=== PATIENT | male | born 1945 | race Caucasian/White ===

== ENCOUNTER 2016-12-24 15:38 | Inpatient (IN) | payer MEDICARE ==
[2016-12-24 16:29] LABS: Bilirubin Small (Negative); Blood, Urine Large (Negative); Glucose, Urine (Dipstick) Negative (Negative); Protein, Urine (Dipstick) 100 mg/dL (Neg-Trace)
[2016-12-24 16:30] LABS: Squamous Epithelial 0-3 HPF (0-3)
--- NOTE | 2016-12-24 16:31 | RAD ---
CHEST ONE VIEW: History: Fever. Comparison: 03-15-16 FINDINGS: Lungs are clear. No pneumothorax or effusion. Cardiac silhouette and mediastinal contours within nor mal limits. IMPRESSION: No acute intrathoracic abnormality. No significant change. POS: [facility]
[2016-12-24 16:35] LABS: Ketone, Urine Unable to Interpret mg/dL (Negative); Nitrite Unable to Interpret (Negative)
[2016-12-24 16:36] LABS: Hyaline Casts/LPF 0-3 HYALINE CAST LPF (0-3 Hyaline); RBC/HPF GREATER THAN 50-TNTC HPF (0-3)
[2016-12-24 16:38] LABS: Bacteria/HPF 2+ HPF (None Seen); Yeast-All Forms Rare HPF (None Seen)
[2016-12-24 17:12] LABS: #Eosinphils 0.1 thou/uL (0.0-0.7); #Lymphocytes 0.9 thou/uL (1.20-3.40); #Neutrophils 13.2 thou/uL (1.40-6.50); %Eosinophils 0.7 % (0.0-10.0); %Lymphocytes 5.6 % (21.0-51.0); %Monocytes 12.5 % (0.0-10.0); Hematocrit 49.5 % (42.0-52.0); Mean Platelet Volume 7.4 fL (7.4-10.4); Red Blood Cell (RBC) Count 5.45 mill/uL (4.70-6.10); White Blood Cell (WBC) Count 16.3 thou/uL (4.8-10.8)
[2016-12-24] MEDS ORDERED: Vancomycin HCl 1 GM in Premix Bag 1 BAG IVPB SCH (17:15)
[2016-12-24] MEDS ORDERED: Piperacillin/Tazobactam 4.5 GM in Sodium Chloride 0.9% 100 ML IVPB SCH (17:15)
[2016-12-24 17:21] LABS: ALT (SGPT) 12 U/L (8-55); AST (SGOT) 13 U/L (5-34); Alkaline Phosphatase 73 U/L (40-150); Anion Gap 16 mmol/L (10-20); BUN (Urea Nitrogen) 35 mg/dL (8.4-25.7); CK (CPK) 14 U/L (30-200); Calc. Creatinine Clearance 0 mL/min (70-130); Calcium 8.8 mg/dL (7.8-10.44); Carbon Dioxide 18 mmol/L (23-31); Chloride 112 mmol/L (98-107); Estimated GFR-MDRD 53; Globulin 3.3 g/dL (2.4-3.5)
[2016-12-24 17:25] LABS: Troponin I Less than 0.010 ng/mL (< 0.028)
[2016-12-24] MEDS ORDERED: Acetaminophen 650 MG Suppository PR PRN (17:46)
[2016-12-24] MEDS ORDERED: Bisacodyl 5 MG TAB PO PRN (17:46)
[2016-12-24] MEDS ORDERED: cefTRIAXone\\ROCEPHIN 1 GM in Sodium Chloride 0.9% 100 ML IVPB SCH (18:00)
[2016-12-24] MEDS ORDERED: cefTRIAXone\\ROCEPHIN 1 GM, Syringe 0.4 ML in Sterile Water 9.6 ML SLOW IVP SCH (18:00)
[2016-12-24 18:01] LABS: Lactic Acid - Sepsis 1.4 mmol/L (0.5-2.2)
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
[2016-12-24 22:15] VITALS: BMI 32.6
[2016-12-24] MEDS: Heparin 5,000 UNITS/ML VIAL SC SCH (23:11)
[2016-12-25] MEDS: cefTRIAXone\\ROCEPHIN 1 GM, Syringe 0.4 ML in Sterile Water 9.6 ML SLOW IVP SCH ×2 (01:25→23:20)
[2016-12-25] MEDS: Sodium Chloride 0.9% 1,000 ML IV SCH ×2 (01:25→07:00)
[2016-12-25 05:06] LABS: #Eosinphils 0.3 thou/uL (0.0-0.7); #Lymphocytes 1.4 thou/uL (1.20-3.40); #Monocytes 1.5 thou/uL (0.11-0.59); #Neutrophils 8.3 thou/uL (1.40-6.50); %Basophils 0.2 % (0.0-1.0); %Eosinophils 2.4 % (0.0-10.0); %Lymphocytes 12.1 % (21.0-51.0); %Monocytes 13.1 % (0.0-10.0); Hematocrit 44.8 % (42.0-52.0); Mean Platelet Volume 7.9 fL (7.4-10.4); Red Blood Cell (RBC) Count 4.91 mill/uL (4.70-6.10); White Blood Cell (WBC) Count 11.4 thou/uL (4.8-10.8)
[2016-12-25 05:22] LABS: ALT (SGPT) 12 U/L (8-55); AST (SGOT) 13 U/L (5-34); Alkaline Phosphatase 68 U/L (40-150); Bilirubin, Direct 0.4 mg/dL (0.1-0.3); Bilirubin, Total 0.9 mg/dL (0.2-1.2); Protein, Total 6.4 g/dL (5.8-8.1)
[2016-12-25 05:23] LABS: Anion Gap 13 mmol/L (10-20); BUN (Urea Nitrogen) 27 mg/dL (8.4-25.7); Calc. Creatinine Clearance 87 mL/min (70-130); Calcium 8.2 mg/dL (7.8-10.44); Carbon Dioxide 21 mmol/L (23-31); Chloride 110 mmol/L (98-107); Estimated GFR-MDRD 70
[2016-12-25] MEDS ORDERED: Sodium Chloride 0.9% 1,000 ML IV SCH (08:32)
[2016-12-25] MEDS: Heparin 5,000 UNITS/ML VIAL SC SCH ×3 (08:51→20:42)
[2016-12-25] MEDS ORDERED: FLU VACC TS2017-18 (>65YR) 0.5 ML SYRINGE IM ONE (09:00)
[2016-12-25 09:33] LABS: Anion Gap 14 mmol/L (10-20); BUN (Urea Nitrogen) 24 mg/dL (8.4-25.7); Calc. Creatinine Clearance 85 mL/min (70-130); Calcium 8.4 mg/dL (7.8-10.44); Carbon Dioxide 19 mmol/L (23-31); Chloride 113 mmol/L (98-107); Estimated GFR-MDRD 69; Magnesium 2.4 mg/dL (1.6-2.6); Phosphorus 2.6 mg/dL (2.3-4.7)
[2016-12-25] MEDS ORDERED: hydrALAZINE 20 MG/ML VIAL SLOW IVP PRN (10:22)
--- NOTE | 2016-12-25 10:28 | PDOC.PN ---
- Subjective Encounter Start Date: 12/25/16 Encounter Start Time: 10:27 more alert no n/v no f/c - Objective Resuscitation Status: Resuscitation Status FULL:Full Resuscitation MAR Reviewed: Yes Vital Signs & Weight: Vital Signs (12 hours) Temp Pulse Resp BP Pulse Ox 12/25/16 08:00 98.0 F 78 20 123/73 97 12/25/16 04:00 98.9 F 78 18 138/67 96 12/25/16 00:00 98.0 F 89 18 146/60 H 95 Weight Weight 208 lb 7 oz I&O: 12/24/16 12/25/16 12/26/16 06:59 06:59 06:59 Intake Total 1760 Output Total 160 Balance 1600 Result Diagrams: 12/25/16 04:51 12/25/16 09:05 Phys Exam - Physical Examination Constitutional: NAD HEENT: PERRLA Neck: no JVD Respiratory: no wheezing Cardiovascular: no significant murmur Gastrointestinal: non-tender Musculoskeletal: pulses present Neurological: normal sensation Psychiatric: A&O x 3 -: has will cath Dx/Plan (1) UTI (urinary tract infection) due to urinary indwelling Will catheter Code(s): T83.511A - I/I REACT D/T INDWELLING URETHRAL CATHETER, INIT; N39.0 - URINARY TRACT INFECTION, SITE NOT SPECIFIED Status: Acute (2) Dyslipidemia Code(s): E78.5 - HYPERLIPIDEMIA, UNSPECIFIED Status: Chronic (3) HTN (hypertension) Code(s): I10 - ESSENTIAL (PRIMARY) HYPERTENSION Status: Chronic Qualifiers: Comment: Stable (4) Sepsis Code(s): A41.9 - SEPSIS, UNSPECIFIED ORGANISM Status: Resolved - Plan * f/u culture, cont rocephin * f/u us renal * monitor lytes
[2016-12-25] MEDS: Sodium Chloride 0.45% 1,000 ML IV SCH ×2 (17:15→23:29)
--- NOTE | 2016-12-25 19:06 | ULT ---
BILATERAL RENAL ULTRASOUND: Date: 12/25/16 HISTORY: UTI. FINDINGS: The right kidney measures 10.8 cm in length and the left kidney measures 11.2 cm in length. No focal mass or hydronephrosis seen on either side. Cortical echogenicity and thickness normal. Urinary bladd er is empty. IMPRESSION: Unremarkable exam. POS: [facility]
[2016-12-25] MEDS: Acetaminophen 325 MG TAB PO PRN (20:41)
[2016-12-26 04:42] LABS: #Eosinphils 0.7 thou/uL (0.0-0.7); #Lymphocytes 1.9 thou/uL (1.20-3.40); #Monocytes 1.9 thou/uL (0.11-0.59); #Neutrophils 9.6 thou/uL (1.40-6.50); %Eosinophils 4.7 % (0.0-10.0); %Lymphocytes 13.2 % (21.0-51.0); %Monocytes 13.8 % (0.0-10.0); Hematocrit 42.3 % (42.0-52.0); Mean Platelet Volume 10.1 fL (7.4-10.4); Red Blood Cell (RBC) Count 4.59 mill/uL (4.70-6.10); White Blood Cell (WBC) Count 14.1 thou/uL (4.8-10.8)
[2016-12-26] MEDS: Sodium Chloride 0.45% 1,000 ML IV SCH (05:49)
[2016-12-26 06:10] LABS: Anion Gap 15 mmol/L (10-20); BUN (Urea Nitrogen) 16 mg/dL (8.4-25.7); BUN/Creatinine Ratio 17.98; Calc. Creatinine Clearance 102 mL/min (70-130); Calcium 8.2 mg/dL (7.8-10.44); Carbon Dioxide 20 mmol/L (23-31); Chloride 105 mmol/L (98-107); Estimated GFR-MDRD 84; Phosphorus 2.8 mg/dL (2.3-4.7)
[2016-12-26] MEDS: Acetaminophen 325 MG TAB PO PRN (06:43)
[2016-12-26] MEDS: Heparin 5,000 UNITS/ML VIAL SC SCH (08:57)
--- NOTE | 2016-12-26 12:53 | PDOC.PN ---
- Subjective Encounter Start Date: 12/26/16 Encounter Start Time: 08:00 Subjective: awake, no sob - Objective Resuscitation Status: Resuscitation Status FULL:Full Resuscitation MAR Reviewed: Yes Vital Signs & Weight: Vital Signs (12 hours) Temp Pulse Resp BP Pulse Ox 12/26/16 08:00 98.6 F 77 16 96 12/26/16 07:21 98.6 F 77 16 128/76 96 12/26/16 04:00 98.8 F 72 18 119/70 97 Weight Weight 208 lb 7 oz I&O: 12/25/16 12/26/16 12/27/16 06:59 06:59 06:59 Intake Total 1760 2742 Output Total 160 875 Balance 1600 1867 Result Diagrams: 12/26/16 04:03 12/26/16 05:25 Phys Exam - Physical Examination HEENT: PERRLA, moist MMs Neck: no JVD, supple Respiratory: no wheezing, no rales Cardiovascular: RRR, no significant murmur Gastrointestinal: soft, non-tender, positive bowel sounds Musculoskeletal: pulses present, edema present Neurological: non-focal, moves all 4 limbs Psychiatric: A&O x 3 Dx/Plan (1) Sepsis Code(s): A41.9 - SEPSIS, UNSPECIFIED ORGANISM Status: Acute Comment: due to klebsiella (2) UTI (urinary tract infection) Status: Acute Qualifiers: Encounter type: subsequent encounter (3) Dyslipidemia Code(s): E78.5 - HYPERLIPIDEMIA, UNSPECIFIED Status: Chronic (4) HTN (hypertension) Code(s): I10 - ESSENTIAL (PRIMARY) HYPERTENSION Status: Chronic Qualifiers: Hypertension type: essential hypertension Comment: Stable - Plan is on ceftriaxone -: eleni kowalski for LE edema -: may dc iv fluids -: will add home dose of flomax -: is on ?eliquis for prior PE, accurate home med list/from his pharmacy * . Review of Systems - Medications/Allergies Allergies/Adverse Reactions: Allergies Allergy/AdvReac Type Severity Reaction Status Date / Time No Known Allergies Allergy Verified 02/15/16 23:10 Medications: Current Medications Acetaminophen (Tylenol) 650 mg PO Q4H PRN PRN Reason: Headache/Fever or Pain Last Admin: 12/26/16 06:43 Dose: 650 mg Acetaminophen (Tylenol) 650 mg MA Q4H PRN PRN Reason: Headache/Fever or Pain Bisacodyl (Dulcolax) 10 mg PO DAILYPRN PRN PRN Reason: Constipation Heparin Sodium (Porcine) (Heparin) 5,000 units SC TID [facility] Last Admin: 12/26/16 08:57 Dose: 5,000 units Hydralazine HCl (Apresoline) 10 mg SLOW IVP Q4H PRN PRN Reason: SBP Greater Than 180 Ceftriaxone Sodium 1 gm/ (Syringe 0.4 ml/ Sterile Water) 10 mls @ 120 mls/hr SLOW IVP 2359 [facility] Last Admin: 12/25/16 23:20 Dose: 10 mls Sodium Chloride (1/2 Normal Saline) 1,000 mls @ 75 mls/hr IV .[id number] [facility] Last Admin: 12/26/16 05:49 Dose: 1,000 mls Sodium Chloride (Flush - Normal Saline) 10 ml IVF PRN PRN PRN Reason: Saline Flush
--- NOTE | 2016-12-26 16:14 | ULT ---
BILATERAL LOWER EXTREMITY VENOUS DUPLEX ULTRASOUND INCLUDING COLOR AND SPECTRAL DOPPLER IMAGIN12/26/16 HISTORY: 71-year-old male with history of bilateral leg edema. The exam performed from groin to ankle including visualized greater saphenous, common femoral, superf icial femoral, profunda femoral, popliteal, trifurcation, and posterior tibial vein regions. There is very extensive obstructing deep venous thrombosis involving almost the entire deep venous sy stems bilaterally including common femoral, entire superficial femoral, popliteal, and posterior tibi al veins bilaterally. IMPRESSION: Very extensive bilateral deep venous thrombosis involving both right and left lower extremity deep ve nous system. This report was called to the patient's nurse, Josefina, at 2:15 p.m. Code CR POS: [facility]
[2016-12-26] MEDS: Tamsulosin HCl 0.4 MG CAP PO SCH (19:59)
[2016-12-26] MEDS: Atorvastatin Calcium 10 MG TAB PO SCH (19:59)
[2016-12-26] MEDS: Apixaban 5 MG TAB PO SCH (19:59)
[2016-12-27] MEDS: cefTRIAXone\\ROCEPHIN 1 GM, Syringe 0.4 ML in Sterile Water 9.6 ML SLOW IVP SCH (00:04)
[2016-12-27] MEDS: Acetaminophen 325 MG TAB PO PRN (00:40)
[2016-12-27 05:34] LABS: #Eosinphils 0.4 thou/uL (0.0-0.7); #Lymphocytes 1.3 thou/uL (1.20-3.40); #Monocytes 1.4 thou/uL (0.11-0.59); #Neutrophils 11.9 thou/uL (1.40-6.50); %Basophils 0.1 % (0.0-1.0); %Eosinophils 2.4 % (0.0-10.0); %Lymphocytes 8.9 % (21.0-51.0); %Monocytes 9.1 % (0.0-10.0); Hematocrit 43.6 % (42.0-52.0); Mean Platelet Volume 7.7 fL (7.4-10.4); Red Blood Cell (RBC) Count 4.78 mill/uL (4.70-6.10)
[2016-12-27 05:37] LABS: Anion Gap 14 mmol/L (10-20); BUN (Urea Nitrogen) 11 mg/dL (8.4-25.7); BUN/Creatinine Ratio 12.79; Calc. Creatinine Clearance 105 mL/min (70-130); Calcium 8.3 mg/dL (7.8-10.44); Carbon Dioxide 20 mmol/L (23-31); Chloride 105 mmol/L (98-107); Estimated GFR-MDRD 88; Phosphorus 2.7 mg/dL (2.3-4.7)
[2016-12-27] MEDS: Apixaban 5 MG TAB PO SCH ×2 (08:44→20:55)
--- NOTE | 2016-12-27 13:28 | PDOC.PN ---
- Subjective Encounter Start Date: 12/27/16 Encounter Start Time: 08:00 Subjective: awake, no sob - Objective Resuscitation Status: Resuscitation Status FULL:Full Resuscitation MAR Reviewed: Yes Vital Signs & Weight: Vital Signs (12 hours) Temp Pulse Resp BP Pulse Ox 12/27/16 08:00 98.8 F 73 16 147/94 H 98 12/27/16 05:38 98.1 F 70 18 178/82 H 96 12/27/16 01:40 98.5 F 89 18 112/73 95 Weight Weight 208 lb 7 oz I&O: 12/26/16 12/27/16 12/28/16 06:59 06:59 06:59 Intake Total 2742 Output Total 875 1025 Balance 1867 -1025 Result Diagrams: 12/27/16 04:00 12/27/16 04:00 Phys Exam - Physical Examination HEENT: PERRLA, moist MMs Neck: no JVD, supple Respiratory: no wheezing, no rales Cardiovascular: RRR, no significant murmur Gastrointestinal: soft, non-tender, positive bowel sounds Musculoskeletal: no edema, pulses present Neurological: non-focal, moves all 4 limbs Psychiatric: A&O x 3 Dx/Plan (1) Sepsis Code(s): A41.9 - SEPSIS, UNSPECIFIED ORGANISM Status: Acute Comment: due to klebsiella (2) UTI (urinary tract infection) Status: Acute Qualifiers: Encounter type: subsequent encounter (3) Dyslipidemia Code(s): E78.5 - HYPERLIPIDEMIA, UNSPECIFIED Status: Chronic (4) HTN (hypertension) Code(s): I10 - ESSENTIAL (PRIMARY) HYPERTENSION Status: Chronic Qualifiers: Hypertension type: essential hypertension Comment: Stable - Plan wbc is 15k, persistent leucocytosis likely due to dvt? -: cultures are growing klebsiella sensitive to all antibiotics in urine -: has extensive dvt, is on eliquis -: eleni hose -: to ambulate as tolerated with PT * . Review of Systems - Medications/Allergies Allergies/Adverse Reactions: Allergies Allergy/AdvReac Type Severity Reaction Status Date / Time No Known Allergies Allergy Verified 02/15/16 23:10 Medications: Current Medications Acetaminophen (Tylenol) 650 mg PO Q4H PRN PRN Reason: Headache/Fever or Pain Last Admin: 12/27/16 00:40 Dose: 650 mg Acetaminophen (Tylenol) 650 mg [place] Q4H PRN PRN Reason: Headache/Fever or Pain Apixaban (Eliquis) 5 mg PO BID [facility] Last Admin: 12/27/16 08:44 Dose: 5 mg Aspirin (Aspirin Chewable) 81 mg PO DAILY [facility] Last Admin: 12/27/16 08:43 Dose: 81 mg Atorvastatin Calcium (Lipitor) 10 mg PO HS [facility] Last Admin: 12/26/16 19:59 Dose: 10 mg Bisacodyl (Dulcolax) 10 mg PO DAILYPRN PRN PRN Reason: Constipation Hydralazine HCl (Apresoline) 10 mg SLOW IVP Q4H PRN PRN Reason: SBP Greater Than 180 Ceftriaxone Sodium 1 gm/ (Syringe 0.4 ml/ Sterile Water) 10 mls @ 120 mls/hr SLOW IVP 2359 [facility] Last Admin: 12/27/16 00:04 Dose: 10 mls Sodium Chloride (Flush - Normal Saline) 10 ml IVF PRN PRN PRN Reason: Saline Flush Tamsulosin HCl (Flomax) 0.4 mg PO HS [facility] Last Admin: 12/26/16 19:59 Dose: 0.4 mg
[2016-12-27] MEDS: Tamsulosin HCl 0.4 MG CAP PO SCH (20:55)
[2016-12-27] MEDS: Atorvastatin Calcium 10 MG TAB PO SCH (20:55)
[2016-12-28] MEDS: cefTRIAXone\\ROCEPHIN 1 GM, Syringe 0.4 ML in Sterile Water 9.6 ML SLOW IVP SCH ×2 (00:36→23:59)
[2016-12-28] MEDS: Apixaban 5 MG TAB PO SCH ×2 (08:11→21:21)
[2016-12-28 08:19] LABS: #Eosinphils 0.2 thou/uL (0.0-0.7); #Lymphocytes 1.3 thou/uL (1.20-3.40); #Monocytes 1.3 thou/uL (0.11-0.59); #Neutrophils 10.2 thou/uL (1.40-6.50); %Eosinophils 1.8 % (0.0-10.0); %Lymphocytes 9.9 % (21.0-51.0); %Monocytes 10.1 % (0.0-10.0); Hematocrit 41.2 % (42.0-52.0); Mean Platelet Volume 7.6 fL (7.4-10.4); Red Blood Cell (RBC) Count 4.55 mill/uL (4.70-6.10)
--- NOTE | 2016-12-28 10:57 | PDOC.PN ---
- Subjective Encounter Start Date: 12/28/16 Encounter Start Time: 08:10 -: old records requested/rev Patient seen and examined. No new complaints. No overnight events - Objective Resuscitation Status: Resuscitation Status FULL:Full Resuscitation MAR Reviewed: Yes Vital Signs & Weight: Vital Signs (12 hours) Temp Pulse Resp BP Pulse Ox 12/28/16 08:00 97.8 F 87 20 98 12/28/16 07:19 97.8 F 87 20 134/77 98 12/28/16 04:00 98.5 F 85 18 118/66 93 L 12/28/16 00:00 98.5 F 91 18 116/64 97 Weight Weight 208 lb 7 oz I&O: 12/27/16 12/28/16 12/29/16 06:59 06:59 06:59 Output Total 1025 575 Balance -1025 -575 Result Diagrams: 12/28/16 07:51 12/27/16 04:00 Phys Exam - Physical Examination Constitutional: NAD HEENT: PERRLA, moist MMs, sclera anicteric Neck: no JVD, supple Respiratory: no wheezing, no rales, no rhonchi Cardiovascular: RRR, no significant murmur, no rub Gastrointestinal: soft, non-tender, no distention, positive bowel sounds Musculoskeletal: pulses present, edema present will+ Neurological: non-focal, normal sensation Lymphatic: no nodes Psychiatric: normal affect Skin: no rash, normal turgor Dx/Plan (1) DVT, bilateral lower limbs Code(s): I82.403 - ACUTE EMBOLISM AND THOMBOS UNSP DEEP VEINS OF LOW EXTRM, BI Status: Acute Qualifiers: Chronicity: acute (2) Sepsis Code(s): A41.9 - SEPSIS, UNSPECIFIED ORGANISM Status: Acute Comment: due to klebsiella (3) UTI (urinary tract infection) due to urinary indwelling catheter Code(s): T83.511A - I/I REACT D/T INDWELLING URETHRAL CATHETER, INIT; N39.0 - URINARY TRACT INFECTION, SITE NOT SPECIFIED Status: Acute (4) Dyslipidemia Code(s): E78.5 - HYPERLIPIDEMIA, UNSPECIFIED Status: Chronic (5) HTN (hypertension) Code(s): I10 - ESSENTIAL (PRIMARY) HYPERTENSION Status: Chronic Qualifiers: Hypertension type: essential hypertension Comment: Stable (6) NPH (normal pressure hydrocephalus) Code(s): G91.2 - (IDIOPATHIC) NORMAL PRESSURE HYDROCEPHALUS Status: Chronic (7) Urinary retention due to benign prostatic hyperplasia Code(s): N40.1 - BENIGN PROSTATIC HYPERPLASIA WITH LOWER URINARY TRACT SYMP; R33.8 - OTHER RETENTION OF URINE Status: Chronic - Plan cont current plan of care, will catheter, continue antibiotics, marriage and family social worker * continue current iv antibiotics as ordered * continue eliquis * will need placement * medication reviewed as below * symptomatic treatment. Review of Systems - Review of Systems ENT: negative: Ear Pain, Ear Discharge, Nose Pain, Nose Discharge, Nose Congestion, Mouth Pain, Mouth Swelling, Throat Pain, Throat Swelling, Other Respiratory: negative: Cough, Dry, Shortness of Breath, Hemoptysis, SOB with Excertion, Pleuritic Pain, Sputum, Wheezing Cardiovascular: negative: Chest Pain, Palpitations, Orthopnea, Paroxysmal Noc. Dyspnea, Edema, Light Headedness, Other Gastrointestinal: negative: Nausea, Vomiting, Abdominal Pain, Diarrhea, Constipation, Melena, Hematochezia, Other Genitourinary: negative: Dysuria, Frequency, Incontinence, Hematuria, Retention , Other Musculoskeletal: negative: Neck Pain, Shoulder Pain, Arm Pain, Back Pain, Hand Pain, Leg Pain, Foot Pain, Other - Medications/Allergies Allergies/Adverse Reactions: Allergies Allergy/AdvReac Type Severity Reaction Status Date / Time No Known Allergies Allergy Verified 02/15/16 23:10 Medications: Current Medications Acetaminophen (Tylenol) 650 mg PO Q4H PRN PRN Reason: Headache/Fever or Pain Last Admin: 12/27/16 00:40 Dose: 650 mg Acetaminophen (Tylenol) 650 mg [place] Q4H PRN PRN Reason: Headache/Fever or Pain Apixaban (Eliquis) 5 mg PO BID [facility] Last Admin: 12/28/16 08:11 Dose: 5 mg Aspirin (Aspirin Chewable) 81 mg PO DAILY [facility] Last Admin: 12/28/16 08:11 Dose: 81 mg Atorvastatin Calcium (Lipitor) 10 mg PO HS [facility] Last Admin: 12/27/16 20:55 Dose: 10 mg Bisacodyl (Dulcolax) 10 mg PO DAILYPRN PRN PRN Reason: Constipation Hydralazine HCl (Apresoline) 10 mg SLOW IVP Q4H PRN PRN Reason: SBP Greater Than 180 Ceftriaxone Sodium 1 gm/ (Syringe 0.4 ml/ Sterile Water) 10 mls @ 120 mls/hr SLOW IVP 2359 [facility] Last Admin: 12/28/16 00:36 Dose: 10 mls Sodium Chloride (Flush - Normal Saline) 10 ml IVF PRN PRN PRN Reason: Saline Flush Tamsulosin HCl (Flomax) 0.4 mg PO HS [facility] Last Admin: 12/27/16 20:55 Dose: 0.4 mg
[2016-12-28] MEDS ORDERED: Benzonatate 100 MG CAP PO PRN (15:56)
[2016-12-28] MEDS ORDERED: Chloraseptic Spray 180 ml Bottle PO PRN (15:56)
[2016-12-28] MEDS ORDERED: Loperamide HCl 2 MG CAP PO PRN (15:56)
[2016-12-28] MEDS ORDERED: Loratadine 10 MG TAB PO PRN (15:56)
[2016-12-28] MEDS ORDERED: HYDROcodone/Acetaminophen 5/325 mg Tablet PO PRN (15:56)
[2016-12-28] MEDS ORDERED: Artificial Tears 18 DROP/0.9 ML EA EYE PRN (15:56)
[2016-12-28] MEDS ORDERED: Ondansetron HCl/PF 4 MG/2 ML Vial IVP PRN (15:56)
[2016-12-28] MEDS ORDERED: Milk Of Magnesia 30 ML UDCUP PO PRN (15:56)
[2016-12-28] MEDS ORDERED: Ondansetron ODT 4 MG TAB PO PRN (15:56)
[2016-12-28] MEDS ORDERED: Eucerin (Mineral Oil/Petrolatum,White) 30 gm Jar TOP PRN (15:56)
[2016-12-28] MEDS ORDERED: Mag-Al 1200 mg/1200 mg/30 ML UDCUP PO PRN (15:56)
[2016-12-28] MEDS ORDERED: Sodium Chloride 0.65% Nasal 44 ML BOT EA NARE PRN (15:56)
[2016-12-28] MEDS ORDERED: Diabetic Tussin 200 MG/10 ML UDCUP PO PRN (15:56)
[2016-12-28] MEDS: Atorvastatin Calcium 10 MG TAB PO SCH (21:21)
[2016-12-28] MEDS: Famotidine 20 MG TAB PO SCH (21:22)
[2016-12-28] MEDS: Tamsulosin HCl 0.4 MG CAP PO SCH (21:22)
[2016-12-29] MEDS: Famotidine 20 MG TAB PO SCH (08:47)
[2016-12-29] MEDS: Apixaban 5 MG TAB PO SCH (08:47)
--- NOTE | 2016-12-29 11:20 | PDOC.PN ---
- Subjective Encounter Start Date: 12/29/16 Encounter Start Time: 08:20 Patient seen and examined. No new complaints. No overnight events - Objective Resuscitation Status: Resuscitation Status FULL:Full Resuscitation MAR Reviewed: Yes Vital Signs & Weight: Vital Signs (12 hours) Temp Pulse Resp BP Pulse Ox 12/29/16 08:00 97.5 F L 80 20 116/74 97 12/29/16 04:00 97.8 F 84 18 117/75 95 12/29/16 00:00 98.0 F 87 18 146/86 H 99 12/28/16 23:32 97.9 F 88 20 156/80 H 97 Weight Weight 208 lb 7 oz I&O: 12/28/16 12/29/16 12/30/16 06:59 06:59 06:59 Intake Total 1570 Output Total 575 525 Balance -575 1045 Result Diagrams: 12/28/16 07:51 12/27/16 04:00 Phys Exam - Physical Examination Constitutional: NAD HEENT: PERRLA, moist MMs, sclera anicteric Neck: no JVD, supple Respiratory: no wheezing, no rales, no rhonchi Cardiovascular: RRR, no significant murmur, no rub Gastrointestinal: soft, non-tender, no distention, positive bowel sounds Musculoskeletal: no edema, pulses present will+ Neurological: non-focal, moves all 4 limbs Psychiatric: normal affect Skin: no rash, normal turgor Dx/Plan (1) DVT, bilateral lower limbs Code(s): I82.403 - ACUTE EMBOLISM AND THOMBOS UNSP DEEP VEINS OF LOW EXTRM, BI Status: Acute Qualifiers: Chronicity: acute (2) Sepsis Code(s): A41.9 - SEPSIS, UNSPECIFIED ORGANISM Status: Acute Comment: due to klebsiella (3) UTI (urinary tract infection) due to urinary indwelling catheter Code(s): T83.511A - I/I REACT D/T INDWELLING URETHRAL CATHETER, INIT; N39.0 - URINARY TRACT INFECTION, SITE NOT SPECIFIED Status: Acute (4) Dyslipidemia Code(s): E78.5 - HYPERLIPIDEMIA, UNSPECIFIED Status: Chronic (5) HTN (hypertension) Code(s): I10 - ESSENTIAL (PRIMARY) HYPERTENSION Status: Chronic Qualifiers: Hypertension type: essential hypertension Comment: Stable (6) NPH (normal pressure hydrocephalus) Code(s): G91.2 - (IDIOPATHIC) NORMAL PRESSURE HYDROCEPHALUS Status: Chronic (7) Urinary retention due to benign prostatic hyperplasia Code(s): N40.1 - BENIGN PROSTATIC HYPERPLASIA WITH LOWER URINARY TRACT SYMP; R33.8 - OTHER RETENTION OF URINE Status: Chronic - Plan cont current plan of care, will catheter, continue antibiotics, PT/OT, social worker delinquency prevention * await placement to SNU * medication reviewed as below * symptomatic treatment * medically stable with current treatment. Review of Systems - Review of Systems Constitutional: Weakness. negative: Fever, Chills, Sweats, Malaise, Other ENT: negative: Ear Pain, Ear Discharge, Nose Pain, Nose Discharge, Nose Congestion, Mouth Pain, Mouth Swelling, Throat Pain, Throat Swelling, Other Respiratory: negative: Cough, Dry, Shortness of Breath, Hemoptysis, SOB with Excertion, Pleuritic Pain, Sputum, Wheezing Cardiovascular: negative: Chest Pain, Palpitations, Orthopnea, Paroxysmal Noc. Dyspnea, Edema, Light Headedness, Other Gastrointestinal: negative: Nausea, Vomiting, Abdominal Pain, Diarrhea, Constipation, Melena, Hematochezia, Other Genitourinary: negative: Dysuria, Frequency, Incontinence, Hematuria, Retention , Other Musculoskeletal: negative: Neck Pain, Shoulder Pain, Arm Pain, Back Pain, Hand Pain, Leg Pain, Foot Pain, Other - Medications/Allergies Allergies/Adverse Reactions: Allergies Allergy/AdvReac Type Severity Reaction Status Date / Time No Known Allergies Allergy Verified 02/15/16 23:10 Medications: Current Medications Acetaminophen (Tylenol) 650 mg PO Q4H PRN PRN Reason: Headache/Fever or Pain Last Admin: 12/27/16 00:40 Dose: 650 mg Acetaminophen (Tylenol) 650 mg ND Q4H PRN PRN Reason: Headache/Fever or Pain Hydrocodone Bitart/Acetaminophen (Sunman 5/325) 1 tab PO Q4H PRN PRN Reason: Moderate Pain (4-6) Al Hydroxide/Mg Hydroxide (Maalox) 15 ml PO Q4H PRN PRN Reason: Heartburn or Indigestion Apixaban (Eliquis) 5 mg PO BID [facility] Last Admin: 12/29/16 08:47 Dose: 5 mg Artificial Tears (Tears Naturale) 0 drop EA EYE PRN PRN PRN Reason: Dry Eyes Aspirin (Aspirin Chewable) 81 mg PO DAILY [facility] Last Admin: 12/29/16 08:48 Dose: 81 mg Atorvastatin Calcium (Lipitor) 10 mg PO HS [facility] Last Admin: 12/28/16 21:21 Dose: 10 mg Benzonatate (Tessalon) 100 mg PO Q4H PRN PRN Reason: Cough Bisacodyl (Dulcolax) 10 mg PO DAILYPRN PRN PRN Reason: Constipation Famotidine (Pepcid) 20 mg PO BID [facility] Last Admin: 12/29/16 08:47 Dose: 20 mg Guaifenesin (Robitussin Sf) 200 mg PO Q4H PRN PRN Reason: Cough Hydralazine HCl (Apresoline) 10 mg SLOW IVP Q4H PRN PRN Reason: SBP Greater Than 180 Ceftriaxone Sodium 1 gm/ (Syringe 0.4 ml/ Sterile Water) 10 mls @ 120 mls/hr SLOW IVP 3109 [facility] Last Admin: 12/28/16 23:59 Dose: 10 mls Loperamide HCl (Imodium) 2 mg PO PRN PRN PRN Reason: Diarrhea/Loose Stools Loratadine (Claritin) 10 mg PO DAILYPRN PRN PRN Reason: Sinus Symptoms Magnesium Hydroxide (Milk Of Magnesium) 30 ml PO DAILYPRN PRN PRN Reason: Constipation Mineral Oil/White Petrolatum (Eucerin Cream) 0 gm TOP BIDPRN PRN PRN Reason: Dry Skin Ondansetron HCl (Zofran Odt) 4 mg PO Q6H PRN PRN Reason: Nausea/Vomiting Ondansetron HCl (Zofran) 4 mg IVP Q6H PRN PRN Reason: Nausea/Vomiting Phenol (Chloraseptic Elrod 180 Ml Bot) 0 ml PO PRN PRN PRN Reason: Sore Throat Sodium Chloride (Flush - Normal Saline) 10 ml IVF PRN PRN PRN Reason: Saline Flush Sodium Chloride ([place] Nasal [place]rod 0.65%) 0 ml EA NARE QIDPRN PRN PRN Reason: Nasal Congestion Tamsulosin HCl (Flomax) 0.4 mg PO HS [facility] Last Admin: 12/28/16 21:22 Dose: 0.4 mg
[2016-12-29 12:25] VITALS: BP 110/73; TEMP 97.8
--- NOTE | 2016-12-29 15:49 | DIS ---
DATE OF ADMISSION: 12/24/2016 DATE OF DISCHARGE: 12/29/2016 PRIMARY CARE PHYSICIAN: Maxine Maciel DO DISCHARGE DISPOSITION: [facility]. PRIMARY DISCHARGE DIAGNOSES: 1. Bilateral deep vein thromboses. 2. Sepsis. 3. Urinary tract infection due to chronic indwelling catheter. SECONDARY DISCHARGE DIAGNOSES: Chronic urinary retention due to BPH, normal pressure hydrocephalus, hypertension, dyslipidemia. PRIMARY PROCEDURE/OPERATION: None. RADIOLOGICAL INVESTIGATION: Chest x-ray normal, renal ultrasound normal. Ultrasound of the lower e xtremity positive for bilateral lower extremity DVT. SIGNIFICANT LABORATORY DATA: Hemoglobin 13.3. WBC 13.0, platelets 275, D-dimer greater than 20. S odium 135, creatinine 0.86. Electrolytes normal. Albumin 3.1. BNP 53.9. Urinalysis suggestive of UTI. Urine culture grew Klebsiella, blood culture negative. DISCHARGE MEDICATIONS: Eliquis 5 mg p.o. b.i.d., aspirin 81 mg p.o. daily, Lipitor 10 mg p.o. at be dtime, Pepcid 20 mg p.o. b.i.d., Macrobid 100 mg twice daily, Flomax 0.4 mg p.o. at bedtime. CONTRAINDICATIONS: None. CODE STATUS: FULL CODE. INPATIENT CONSULTANTS: None. ALLERGIES: No known drug allergy. DISCHARGE PLAN: Post hospital, the patient is discharged to [facility] and subse quently, the patient will follow up with primary care physician. HOSPITAL COURSE: A 71-year-old male with above-mentioned medical problem who was admitted by Dr. Alexandr byrnes, please see his H\T\P for further details. This patient was hospitalized with complaint of not feeling good. On admission, he was diagnosed with sepsis. His source of infection was urinary trac t. He has chronic urinary indwelling Mckinney catheter because of chronic urinary retention secondary to benign enlargement of prostate. He was also found with acute kidney failure and he was dehydrate d on admission. While in hospital, he was treated with IV antibiotic therapy and on discharge, we c hanged to Macrobid based on culture and sensitivity result. His urine culture grew Klebsiella. His blood culture remained negative. His ultrasound of lower extremity confirmed bilateral lower extre mity deep vein thromboses and he is taking chronic anticoagulation therapy with Eliquis. He has significant physical deconditioning and that is why we discussed with the patient about place ment and he agreed to go to custodial home. With help of case making machine operator, we arranged skilled [facility] home for him. Paper work for discharge done. Discharge medication reconciliation done. The patient is seen and e xamined at bedside today. Please see my progress note from today for further details. Total time spent on discharge day more than 30 minutes.
--- NOTE | 2017-01-27 12:12 | EKG ---
Test Reason : SEPSIS Blood Pressure : / mmHG Vent. Rate : 103 BPM Atrial Rate : 103 BPM P-R Int : 178 ms QRS Dur : 118 ms QT Int : 372 ms P-R-T Axes : 073 102 -05 degrees QTc Int : 487 ms Poor data quality, interpretation may be adversely affected Sinus tachycardia Incomplete right bundle branch block Possible Right ventricular hypertrophy Abnormal ECG Confirmed by JORGE DOVE, JAYNE Hopson ([id number]), movie editor VALDEZ BURNS ([id number]) on 01/27/2017 12:12:26 PM Referred By: Confirmed By:JAYNE PATEL MD
== END 2016-12-29 15:45 | DRG 698 ==
LOC: ERS 15:38 → T4-A 17:00
PROVIDERS: ADMIT Internal Medicine; ATTEND Internal Medicine
DX: T83.518A Infection and inflammatory reaction due to other urinary catheter, initial encounter (principal); A41.4 Sepsis due to anaerobes; N17.9 Acute kidney failure, unspecified; I82.413 Acute embolism and thrombosis of femoral vein, bilateral; G91.2 (Idiopathic) normal pressure hydrocephalus; N39.0 Urinary tract infection, site not specified; I82.433 Acute embolism and thrombosis of popliteal vein, bilateral; I82.443 Acute embolism and thrombosis of tibial vein, bilateral; Y84.6 Urinary catheterization as the cause of abnormal reaction of the patient, or of later complication, without mention of misadventure at the time of the procedure; N40.1 Benign prostatic hyperplasia with lower urinary tract symptoms; R33.8 Other retention of urine; E78.5 Hyperlipidemia, unspecified; I10 Essential (primary) hypertension; E86.0 Dehydration
CPT/HCPCS: 36415; 71010; 76770; 80048; 80053; 80061; 80069; 80076; 81003; 81015; 82553; 83605; 83735; 83880; 84100; 84484; 85025; 85379; 87040; 87077; 87086; 87186; 90471; 90682; 90732; 93005; 93970; 96361; 96365; A4216; G0008; G0009; G8978-GP-CM; G8979-GP-CI; J0696; J1644; J2543; J3370; J7050; Q2036

== ENCOUNTER 2017-04-04 16:50 | Emergency (ER) | payer MEDICARE ==
[2017-04-04] MEDS ORDERED: ISOVUE-370 76%-LOCM 1 ML ONE (16:58)
[2017-04-04 18:01] LABS: #Basophils 0.1 thou/uL (0.0-0.2); #Eosinphils 0.2 thou/uL (0.0-0.7); #Lymphocytes 1.9 thou/uL (1.20-3.40); #Monocytes 0.9 thou/uL (0.11-0.59); #Neutrophils 6.4 thou/uL (1.40-6.50); %Basophils 0.7 % (0.0-1.0); %Eosinophils 2.6 % (0.0-10.0); %Lymphocytes 19.7 % (21.0-51.0); %Monocytes 9.9 % (0.0-10.0); %Neutrophils 67.1 % (42.0-75.0); Hemoglobin 16.9 g/dL (14.0-18.0); Mean Corpuscular HGB CONC 31.2 g/dL (32.0-36.0); Mean Corpuscular Hemoglobin 28.6 pg (27.0-31.0); Mean Corpuscular Volume 91.6 fl (80.0-94.0); Mean Platelet Volume 7.5 fL (7.4-10.4); Platelet Count 223 thou/uL (130-400); RBC Distribution Width 14.6 % (11.5-14.5); White Blood Cell (WBC) Count 9.5 thou/uL (4.8-10.8)
--- NOTE | 2017-04-04 18:27 | RAD ---
PORTABLE AP CHEST X-RAY 04/04/17 HISTORY: Dyspnea, cough, and fever since Sunday. COMPARISON: 12/24/16. FINDINGS: The cardiac silhouette is magnified by projection. Pulmonary vasculature is within normal limits. The lungs are clear. Osseous structures are intact. IMPRESSION: No acute cardiopulmonary process. POS: [facility]
[2017-04-04 18:28] LABS: ALT (SGPT) 13 U/L (8-55); AST (SGOT) 27 U/L (5-34); Albumin 4.8 g/dL (3.4-4.8); Alkaline Phosphatase 101 U/L (40-150); Anion Gap 13 mmol/L (10-20); BUN (Urea Nitrogen) 12 mg/dL (8.4-25.7); Bilirubin, Total 0.8 mg/dL (0.2-1.2); CK (CPK) 48 U/L (30-200); Calc. Creatinine Clearance 0 mL/min (70-130); Calcium 9.6 mg/dL (7.8-10.44); Carbon Dioxide 27 mmol/L (23-31); Chloride 106 mmol/L (98-107); Estimated GFR-MDRD 67; Globulin 4.5 g/dL (2.4-3.5); Glucose 106 mg/dL (83-110); Potassium 5.7 mmol/L (3.5-5.1); Protein, Total 9.3 g/dL (5.8-8.1); Sodium 140 mmol/L (136-145)
[2017-04-04 18:34] LABS: Troponin I Less than 0.010 ng/mL (< 0.028)
--- NOTE | 2017-04-04 20:38 | CT ---
CT ANGIOGRAM THORAX WITH IV CONTRAST AND 3D RECONSTRUCTIONS 04/04/17 HISTORY: Dyspnea and wheezing with onset five days ago. Rhinorrhea, congestion, and cough. COMPARISON: 02/16/16. FINDINGS: There are linear low density areas seen in the segmental pulmonary arteries bilaterally, likely seque la from prior pulmonary emboli noted on study of 02/16/16. There are no filling defects on this examination within the pulmonary arteries to suggest more acute pulmonary emboli. Thoracic aorta is normal in caliber without evidence of an aortic dissection. Mild atherosclerotic pl aque is seen in the thoracic aorta. The nodule in the inferior aspect left lobe of the thyroid gland is again present. There is no lymphadenopathy seen. There is stable linear densities in the right upper lobe and right middle lobe likely related to area s of scarring given stability since study in 2016. There is linear atelectasis in the lingula. No pulmonary nodule, mass, or pleural effusion is identified. There is scarring in the subcutaneous soft tissues at the left anterolateral aspect of the lower ches t/upper abdomen which was seen on prior exam. Partial visualization of nonobstructing superior pole left renal calculi are seen. There is colonic diverticulosis. No other interval change from the prior exam. IMPRESSION: 1. Sequela from prior pulmonary emboli, but no acute pulmonary embolus is seen. 2. Mild atherosclerotic plaque in the thoracic aorta, but the thoracic aorta is normal in calibe r without evidence of an aortic dissection. 3. Stable nodule left lobe of the thyroid gland. POS: [facility]
[2017-04-04] MEDS ORDERED: predniSONE 20 MG TAB ONE (20:44)
== END 2017-04-04 21:00 | disposition home or self-care (01) ==
LOC: ERS 16:50
DX: J40 Bronchitis, not specified as acute or chronic (principal); R06.2 Wheezing; E78.5 Hyperlipidemia, unspecified; I10 Essential (primary) hypertension; N40.0 Benign prostatic hyperplasia without lower urinary tract symptoms; Z86.718 Personal history of other venous thrombosis and embolism; F17.220 Nicotine dependence, chewing tobacco, uncomplicated; Z79.899 Other long term (current) drug therapy; Z79.82 Long term (current) use of aspirin
CPT/HCPCS: 36415; 71045; 71275; 80053; 82553; 83880; 84484; 85025; 85379; 93005; 94640; 94760; J7506; J7620

== ENCOUNTER 2017-07-22 18:48 | Emergency (ER) | payer MEDICAID, MEDICARE ==
[2017-07-22 22:07] LABS: #Eosinphils 0.2 thou/uL (0.0-0.7); #Lymphocytes 1.8 thou/uL (1.20-3.40); #Monocytes 0.7 thou/uL (0.11-0.59); #Neutrophils 5.2 thou/uL (1.40-6.50); %Basophils 0.5 % (0.0-1.0); %Eosinophils 2.7 % (0.0-10.0); %Lymphocytes 22.2 % (21.0-51.0); %Monocytes 9.3 % (0.0-10.0); %Neutrophils 65.4 % (42.0-75.0); Mean Corpuscular HGB CONC 31.3 g/dL (32.0-36.0); Mean Corpuscular Hemoglobin 27.2 pg (27.0-31.0); Mean Corpuscular Volume 86.9 fl (80.0-94.0); Mean Platelet Volume 6.9 fL (7.4-10.4); Platelet Count 243 thou/uL (130-400); RBC Distribution Width 14.1 % (11.5-14.5); Red Blood Cell (RBC) Count 6.26 mill/uL (4.70-6.10)
[2017-07-22 22:51] LABS: Anion Gap 12 mmol/L (10-20); BUN (Urea Nitrogen) 12 mg/dL (8.4-25.7); Calc. Creatinine Clearance 0 mL/min (70-130); Calcium 9.5 mg/dL (7.8-10.44); Carbon Dioxide 27 mmol/L (23-31); Chloride 104 mmol/L (98-107); Estimated GFR-MDRD 69; Glucose 92 mg/dL (83-110); Potassium 4.6 mmol/L (3.5-5.1); Sodium 138 mmol/L (136-145)
== END 2017-07-22 23:16 | disposition home or self-care (01) ==
LOC: ERS 18:48
DX: R60.0 Localized edema (principal); E78.5 Hyperlipidemia, unspecified; F17.220 Nicotine dependence, chewing tobacco, uncomplicated; I10 Essential (primary) hypertension; N40.0 Benign prostatic hyperplasia without lower urinary tract symptoms; Z79.82 Long term (current) use of aspirin; Z79.899 Other long term (current) drug therapy
CPT/HCPCS: 36415; 80048; 85025; 99284

== ENCOUNTER 2018-03-06 12:15 | Inpatient (IN) | payer MEDICARE ==
[2018-03-06 13:20] LABS: #Eosinphils 0.2 thou/uL (0.0-0.7); #Lymphocytes 1.5 thou/uL (1.20-3.40); #Neutrophils 5.4 thou/uL (1.40-6.50); %Basophils 0.5 % (0.0-1.0); %Eosinophils 2.3 % (0.0-10.0); %Lymphocytes 18.8 % (21.0-51.0); %Monocytes 12.3 % (0.0-10.0); Hemoglobin 18.7 g/dL (14.0-18.0); Mean Corpuscular HGB CONC 31.8 g/dL (32.0-36.0); Mean Corpuscular Hemoglobin 28.2 pg (27.0-31.0); Mean Corpuscular Volume 88.5 fL (78.0-98.0); Mean Platelet Volume 7.6 fL (7.4-10.4); Platelet Count 217 thou/uL (130-400); RBC Distribution Width 13.8 % (11.5-14.5); Red Blood Cell (RBC) Count 6.64 mill/uL (4.70-6.10); White Blood Cell (WBC) Count 8.2 thou/uL (4.8-10.8)
--- NOTE | 2018-03-06 13:48 | CT ---
HEAD CT NONCONTRAST: INDICATION: Injury, fall. FINDINGS: There is enlargement of the ventricular system out of proportion to size of the cerebral sulci. No i ntracranial hemorrhage, mass effect, or midline shift. There is mucosal thickening and retention cys t formation of the paranasal sinuses. Age-indeterminate hypodensity of the left thalamus is present, which indicates a lacunar infarction. No depressed calvarial fracture. IMPRESSION: 1. Enlarged ventricular system. Correlate for normal-pressure hydrocephalus. 2. 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 3. No acute intracranial hemorrhage, mass effect, or midline shift. POS: [facility]
[2018-03-06 13:54] LABS: AST (SGOT) 61 U/L (5-34); Albumin 4.2 g/dL (3.4-4.8); Anion Gap 17 mmol/L (10-20); BUN (Urea Nitrogen) 11 mg/dL (8.4-25.7); Bilirubin, Total 0.7 mg/dL (0.2-1.2); Calc. Creatinine Clearance 0 mL/min (70-130); Calcium 9.5 mg/dL (7.8-10.44); Carbon Dioxide 20 mmol/L (23-31); Chloride 108 mmol/L (98-107); Estimated GFR-MDRD 78; Globulin 3.4 g/dL (2.4-3.5); Glucose 99 mg/dL (83-110); Potassium 4.5 mmol/L (3.5-5.1); Protein, Total 7.6 g/dL (5.8-8.1); Sodium 140 mmol/L (136-145)
[2018-03-06 14:17] LABS: ALT (SGPT) 32 U/L (8-55); Alkaline Phosphatase 75 U/L (40-150)
[2018-03-06 16:21] LABS: Bilirubin Negative (Negative); Blood, Urine Negative (Negative); Clarity CLEAR (Clear); Glucose, Urine (Dipstick) Negative (Negative); Leukocyte Negative (Negative); Nitrite Negative (Negative); Protein, Urine (Dipstick) Negative (Neg-Trace); Specific Gravity, Urine 1.023 (1.002-1.036); Urobilinogen 0.2 mg/dL (0.2-1.0); pH, Urine 6.5 (5.0-9.0)
--- NOTE | 2018-03-06 17:32 | RAD ---
RIGHT HIP TWO VIEWS: 03/06/18 HISTORY: Fall. Right hip injury. FINDINGS: Near complete loss of the joint space. Prominent osteophytosis with mild to moderate subchondral scle rosis. Femoral head contour is maintained. No acute fracture or dislocation. IMPRESSION: Prominent osteoarthritic changes right hip. POS: [facility]
--- NOTE | 2018-03-06 17:33 | RAD ---
LEFT HIP TWO VIEWS: 03/06/18 HISTORY: Left hip pain. FINDINGS: Moderate joint space narrowing and subchondral sclerosis. Prominent osteophytosis. Femoral head conto ur is maintained. No acute fracture or dislocation. IMPRESSION: Moderate osteoarthritic changes left hip. POS: [facility]
[2018-03-06] MEDS ORDERED: Ondansetron PF 4 MG/2 ML Vial IVP PRN (22:54)
[2018-03-06] MEDS ORDERED: Acetaminophen 325 MG TAB PO PRN (22:54)
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
[2018-03-07 00:23] VITALS: BMI 39.0
[2018-03-07 06:21] LABS: #Basophils 0.1 thou/uL (0.0-0.2); #Eosinphils 0.2 thou/uL (0.0-0.7); #Lymphocytes 1.7 thou/uL (1.20-3.40); #Monocytes 0.8 thou/uL (0.11-0.59); #Neutrophils 4.3 thou/uL (1.40-6.50); %Basophils 1.6 % (0.0-1.0); %Eosinophils 2.7 % (0.0-10.0); %Lymphocytes 24.4 % (21.0-51.0); %Monocytes 11.8 % (0.0-10.0); %Neutrophils 59.6 % (42.0-75.0); Hemoglobin 17.2 g/dL (14.0-18.0); Mean Corpuscular HGB CONC 33.2 g/dL (32.0-36.0); Mean Corpuscular Hemoglobin 29.2 pg (27.0-31.0); Mean Corpuscular Volume 88.2 fL (78.0-98.0); Mean Platelet Volume 7.5 fL (7.4-10.4); Platelet Count 209 thou/uL (130-400); RBC Distribution Width 13.6 % (11.5-14.5); Red Blood Cell (RBC) Count 5.87 mill/uL (4.70-6.10); White Blood Cell (WBC) Count 7.2 thou/uL (4.8-10.8)
[2018-03-07 06:46] LABS: Anion Gap 12 mmol/L (10-20); BUN (Urea Nitrogen) 11 mg/dL (8.4-25.7); Calc. Creatinine Clearance 126 mL/min (70-130); Calcium 8.7 mg/dL (7.8-10.44); Carbon Dioxide 23 mmol/L (23-31); Chloride 108 mmol/L (98-107); Estimated GFR-MDRD Greater than 90; Glucose 90 mg/dL (83-110); Sodium 139 mmol/L (136-145)
[2018-03-07] MEDS: Apixaban 5 MG TAB PO SCH ×2 (08:59→19:54)
[2018-03-07] MEDS: Famotidine 20 MG TAB PO SCH ×2 (08:59→19:54)
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
[2018-03-07] MEDS ORDERED: Tamsulosin HCl 0.4 MG CAP PO SCH (21:00)
[2018-03-07] MEDS ORDERED: Atorvastatin Calcium 10 MG TAB PO SCH (21:00)
[2018-03-08] MEDS: Famotidine 20 MG TAB PO SCH (08:29)
[2018-03-08] MEDS: Apixaban 5 MG TAB PO SCH (08:29)
--- NOTE | 2018-03-08 08:41 | PDOC.PN ---
- Subjective Encounter Start Date: 03/08/18 Encounter Start Time: 12:15 Fahad was seen today in follow-up of generalized weakness and frequent falls. He does not have any complaints this morning. - Objective Resuscitation Status - Order Detail: 03/06/18 22:54 Resuscitation Status Routine Resuscitation Status: FULL: Full Resuscitation MAR Reviewed: Yes Vital Signs & Weight: Vital Signs (12 hours) Temp Pulse Resp BP Pulse Ox 03/08/18 07:48 97.6 F 73 18 140/80 93 L 03/08/18 05:27 97.5 F L 74 18 137/78 93 L 03/08/18 00:24 98.3 F 74 20 144/79 H 93 L Weight Admit Weight 242 lb Weight 242 lb I&O: 03/07/18 03/08/18 03/09/18 06:59 06:59 06:59 Intake Total 500 240 Balance 500 240 Result Diagrams: 03/07/18 05:55 03/07/18 05:55 Phys Exam - Physical Examination HEENT: PERRLA Respiratory: no wheezing, no rales, no rhonchi, clear to auscultation bilateral Cardiovascular: RRR, no significant murmur, no rub Gastrointestinal: soft, non-tender, no distention, positive bowel sounds Musculoskeletal: pulses present, edema present Venous stasis changes, and weeping of the lower extremities Dx/Plan (1) NPH (normal pressure hydrocephalus) Code(s): G91.2 - (IDIOPATHIC) NORMAL PRESSURE HYDROCEPHALUS Status: Chronic (2) DVT, bilateral lower limbs Code(s): I82.403 - ACUTE EMBOLISM AND THOMBOS UNSP DEEP VEINS OF LOW EXTRM, BI Status: Chronic Qualifiers: Chronicity: chronic (3) HTN (hypertension) Code(s): I10 - ESSENTIAL (PRIMARY) HYPERTENSION Status: Chronic Qualifiers: Hypertension type: essential hypertension Comment: Stable (4) Frequent falls Code(s): R29.6 - REPEATED FALLS Status: Acute (5) Chronic venous stasis dermatitis of both lower extremities Code(s): I87.2 - VENOUS INSUFFICIENCY (CHRONIC) (PERIPHERAL) Status: Acute (6) Sacral decubitus ulcer, stage II Code(s): L89.152 - PRESSURE ULCER OF SACRAL REGION, STAGE 2 Status: Acute - Plan * Probable NPH with frequent falls, and confusion.- continue PT/OT- plan is for outpatient NS evaluation with large volume LP * Sacral decubitus and chronic venous stasis wounds- continue local wound care. * HTN- blood pressure is stable * DVT- he is s/p IVC filter- apparently he has been refused to take Eliquis in the past- this has been re-started in the hospital * Awaiting Rehab screen
[2018-03-08] MEDS ORDERED: Furosemide 20 MG TAB PO SCH (12:30)
[2018-03-08 16:15] VITALS: BP 144/84; TEMP 97.5
[2018-03-09] MEDS ORDERED: Furosemide 20 MG TAB PO SCH (09:00)
== END 2018-03-08 20:06 | DRG 57 ==
LOC: ERS 12:15 → OBSVTOIN 19:18 → T4-B 19:18
PROVIDERS: ADMIT Hospitalist; ATTEND Hospitalist
DX: G91.2 (Idiopathic) normal pressure hydrocephalus (principal); I82.403 Acute embolism and thrombosis of unspecified deep veins of lower extremity, bilateral; I10 Essential (primary) hypertension; E78.5 Hyperlipidemia, unspecified; R29.6 Repeated falls; R32 Unspecified urinary incontinence; I87.2 Venous insufficiency (chronic) (peripheral); L89.152 Pressure ulcer of sacral region, stage 2; Z79.01 Long term (current) use of anticoagulants; Z86.711 Personal history of pulmonary embolism
CPT/HCPCS: 36415; 51701; 70450; 80048; 80053; 81003; 83880; 84484; 85025; 93005

== ENCOUNTER 2019-06-09 05:12 | Emergency (ER) | payer MEDICARE | END 2019-06-09 07:15 | disposition home or self-care (01) | LOC: ERS 05:12 | DX: M79.89 Other specified soft tissue disorders (principal); E78.5 Hyperlipidemia, unspecified; E78.00 Pure hypercholesterolemia, unspecified; F17.220 Nicotine dependence, chewing tobacco, uncomplicated; Z86.718 Personal history of other venous thrombosis and embolism | CPT/HCPCS: 36415; 80053; 80061; 84443; 85025; 86803; 99281; G0103 ==

== ENCOUNTER 2019-07-30 11:58 | Observation (INO) | payer MEDICARE ==
--- NOTE | 2019-07-30 12:43 | RAD ---
Exam: Chest one view HISTORY:Lower extremity swelling. Wheezing. Comparison: 04/04/2017 FINDINGS: Cardiac silhouette: Normal Aorta: Unremarkable Pulmonary vessels: Normal Costophrenic angles: Clear LUNGS: No masses or consolidation. Pneumothorax: None Osseous abnormalities: None IMPRESSION: No acute cardiopulmonary process.
[2019-07-30 12:56] LABS: #Eosinphils 0.1 thou/uL (0.0-0.7); #Lymphocytes 1.3 thou/uL (1.20-3.40); #Monocytes 0.9 thou/uL (0.11-0.59); #Neutrophils 6.2 thou/uL (1.40-6.50); %Basophils 0.1 % (0.0-1.0); %Eosinophils 1.4 % (0.0-10.0); %Lymphocytes 15.7 % (21.0-51.0); %Monocytes 10.7 % (0.0-10.0); %Neutrophils 72.1 % (42.0-75.0); Hemoglobin 17.4 g/dL (14.0-18.0); Mean Corpuscular HGB CONC 31.8 g/dL (32.0-36.0); Mean Corpuscular Hemoglobin 28.1 pg (27.0-31.0); Mean Corpuscular Volume 88.6 fL (78.0-98.0); Mean Platelet Volume 7.8 fL (7.4-10.4); Platelet Count 212 thou/uL (130-400); RBC Distribution Width 13.3 % (11.5-14.5); White Blood Cell (WBC) Count 8.6 thou/uL (4.8-10.8)
[2019-07-30 13:22] LABS: ALT (SGPT) 13 U/L (8-55); AST (SGOT) 14 U/L (5-34); Albumin 4.3 g/dL (3.4-4.8); Alkaline Phosphatase 76 U/L (40-110); Anion Gap 12 mmol/L (10-20); BUN (Urea Nitrogen) 11 mg/dL (8.4-25.7); Bilirubin, Total 0.7 mg/dL (0.2-1.2); CK (CPK) 25 U/L (30-200); Calc. Creatinine Clearance 0 mL/min (70-130); Calcium 9.4 mg/dL (7.8-10.44); Carbon Dioxide 28 mmol/L (23-31); Chloride 106 mmol/L (98-107); Estimated GFR-MDRD 69; Globulin 3.3 g/dL (2.4-3.5); Glucose 103 mg/dL (83-110); Protein, Total 7.6 g/dL (5.8-8.1); Sodium 142 mmol/L (136-145)
[2019-07-30 13:39] LABS: Bilirubin Negative (Negative); Blood, Urine Negative (Negative); Clarity Clear (Clear); Glucose, Urine (Dipstick) Normal (Negative); Leukocyte Negative Leu/uL (Negative); Nitrite Negative (Negative); Protein, Urine (Dipstick) Negative (Neg-Trace); Urobilinogen Normal mg/dL (Less than 2)
[2019-07-30] MEDS ORDERED: Ondansetron PF 4 MG/2 ML Vial IVP PRN ×2 (16:51→17:42)
[2019-07-30] MEDS ORDERED: Acetaminophen 325 MG TAB PO PRN (16:51)
[2019-07-30] MEDS ORDERED: Ondansetron ODT 4 MG TAB SL PRN (16:51)
[2019-07-30] MEDS ORDERED: Acetaminophen 500 MG TAB PO PRN (17:42)
[2019-07-30] MEDS ORDERED: Ondansetron ODT 4 MG TAB PO PRN (17:42)
[2019-07-30] MEDS ORDERED: hydrALAZINE 20 MG/ML VIAL SLOW IVP PRN (17:42)
[2019-07-30 18:13] VITALS: BMI 36.3
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
[2019-07-30] MEDS: Famotidine 20 MG TAB PO SCH (20:12)
[2019-07-31] MEDS: Famotidine 20 MG TAB PO SCH ×2 (08:51→21:33)
[2019-07-31] MEDS: Enoxaparin Sodium 40 MG/0.4 ML SYRINGE SC SCH (08:51)
[2019-07-31] MEDS: Aspirin Chewable 81 MG TAB PO SCH (08:51)
[2019-07-31 12:14] LABS: Anion Gap 10 mmol/L (10-20); BUN (Urea Nitrogen) 11 mg/dL (8.4-25.7); Calc. Creatinine Clearance 103 mL/min (70-130); Calcium 8.9 mg/dL (7.8-10.44); Carbon Dioxide 27 mmol/L (23-31); Chloride 108 mmol/L (98-107); Estimated GFR-MDRD 81; Glucose 88 mg/dL (83-110); Potassium 4.4 mmol/L (3.5-5.1); Sodium 141 mmol/L (136-145)
[2019-07-31 12:16] LABS: Band 1 % (5-11); Eosinophils 5 % (0-10); Hemoglobin 16.1 g/dL (14.0-18.0); Lymphocytes 23 % (21-51); MDiff Complete? YES; Mean Corpuscular HGB CONC 32.7 g/dL (32.0-36.0); Mean Corpuscular Hemoglobin 29.7 pg (27.0-31.0); Mean Corpuscular Volume 90.8 fL (78.0-98.0); Mean Platelet Volume 7.6 fL (7.4-10.4); Monocytes 6 % (0-10); Neutrophil 61 % (42-75); Platelet Count 205 thou/uL (130-400); Platelet Morphology Comment Appears Adequate; RBC Distribution Width 13.5 % (11.5-14.5); RBC Morphology Normal; Reactive Lymphocytes 4 % (0-10); Red Blood Cell (RBC) Count 5.43 mill/uL (4.70-6.10); White Blood Cell (WBC) Count 7.1 thou/uL (4.8-10.8)
--- NOTE | 2019-07-31 14:08 | PDOC.HOSPP ---
- Subjective Encounter Date: 07/31/19 Encounter Time: 11:05 Subjective: f/u for FTT, general weakness. States feeling ok overall. No new complaints. - Objective Vital Signs & Weight: Vital Signs (12 hours) Temp Pulse Resp BP Pulse Ox 07/31/19 11:57 97.4 F L 92 18 135/80 96 07/31/19 08:00 95 07/31/19 07:29 97.7 F 70 18 117/71 95 07/31/19 06:20 95 07/31/19 05:02 97.8 F 72 18 119/78 94 L 07/31/19 04:04 97.9 F 69 18 116/73 97 Weight Weight 225 lb 8 oz I&O: 07/30/19 07/31/19 08/01/19 06:59 06:59 06:59 Intake Total 500 480 Balance 500 480 Result Diagrams: 07/31/19 11:43 07/31/19 11:43 Additional Labs: Laboratory Tests 07/30/19 07/30/19 07/30/19 12:43 12:43 12:43 Creatine Kinase 25 L Troponin I 0.014 B-Natriuretic Peptide 109.8 H Hospitalist ROS - Medication Medications: Active Medications Generic Name Dose Route Start Last Admin Trade Name Freq PRN Reason Stop Dose Admin Aspirin 81 mg 07/31/19 09:00 07/31/19 08:51 Aspirin Chewable PO 81 mg DAILY LEANNE Administration Enoxaparin Sodium 40 mg 07/31/19 09:00 07/31/19 08:51 Lovenox SC 40 mg 0900 LEANNE Administration Famotidine 20 mg 07/30/19 21:00 07/31/19 08:51 Pepcid PO 20 mg BID LEANNE Administration - Exam General Appearance: NAD, awake alert Eye: PERRL, anicteric sclera ENT: normocephalic atraumatic, no oropharyngeal lesions Neck: supple, symmetric, no JVD, no thyromegaly, no lymphadenopathy Heart: RRR, no murmur, no gallops, no rubs, normal peripheral pulses Heart - other findings: S1, S2 Respiratory: CTAB, no wheezes, no rales, no ronchi, normal chest expansion Gastrointestinal: soft, non-tender, non-distended, normal bowel sounds, no palpable masses Extremities: no cyanosis Extremities - other findings: BLE lymphedema, erythema Skin: normal turgor Neurological: cranial nerve grossly intact, no new deficit Musculoskeletal: normal tone, generalized weakness Psychiatric: oriented to person, oriented to place Hosp A/P (1) FTT (failure to thrive) in adult Status: Chronic Plan: PT for mobilization, Nutritional support, CM for dispo options and likely SNF/ NH placement (2) Generalized weakness Code(s): R53.1 - WEAKNESS Status: Chronic Plan: See #1 above (3) Chronic venous stasis dermatitis of both lower extremities Code(s): I87.2 - VENOUS INSUFFICIENCY (CHRONIC) (PERIPHERAL) Status: Chronic Plan: Local skin care, elevate LE's while in bed - Plan PT/OT, licensed master social worker, out of bed/ambulate Stable currently Continue supportive mgmt OOB with PT CM for dispo options Code Status: FULL
[2019-08-01] MEDS: Famotidine 20 MG TAB PO SCH ×2 (09:27→20:56)
[2019-08-01] MEDS: Aspirin Chewable 81 MG TAB PO SCH (09:27)
[2019-08-01] MEDS: Enoxaparin Sodium 40 MG/0.4 ML SYRINGE SC SCH (09:28)
--- NOTE | 2019-08-01 16:32 | PDOC.HOSPP ---
- Subjective Encounter Date: 08/01/19 Encounter Time: 15:45 Subjective: f/u for FTT, general weakness and poor social situation. Pt states he feels ok and ambulated with PT today in halls. - Objective Vital Signs & Weight: Vital Signs (12 hours) Temp Pulse Resp BP Pulse Ox 08/01/19 12:22 97.5 F L 62 18 126/68 95 08/01/19 07:39 97.2 F L 73 20 138/72 95 Weight Admit Weight 225 lb Weight 225 lb 8 oz I&O: 07/31/19 08/01/19 08/02/19 06:59 06:59 06:59 Intake Total 500 720 Balance 500 720 Result Diagrams: 07/31/19 11:43 07/31/19 11:43 Hospitalist ROS - Medication Medications: Active Medications Generic Name Dose Route Start Last Admin Trade Name Freq PRN Reason Stop Dose Admin Aspirin 81 mg 07/31/19 09:00 08/01/19 09:27 Aspirin Chewable PO 81 mg DAILY LEANNE Administration Enoxaparin Sodium 40 mg 07/31/19 09:00 08/01/19 09:28 Lovenox SC 40 mg 0900 LEANNE Administration Famotidine 20 mg 07/30/19 21:00 08/01/19 09:27 Pepcid PO 20 mg BID LEANNE Administration - Exam General Appearance: NAD, awake alert Eye: PERRL, anicteric sclera ENT: normocephalic atraumatic, no oropharyngeal lesions Neck: supple, symmetric, no JVD, no thyromegaly, no lymphadenopathy Heart: RRR, no murmur, no gallops, no rubs Heart - other findings: S1, S2 Respiratory: CTAB, no wheezes, no rales, no ronchi, normal chest expansion, no tachypnea Gastrointestinal: soft, non-tender, non-distended, normal bowel sounds, no palpable masses Extremities - other findings: chronic BLE lymphedema/venous stasis changes Skin: normal turgor Neurological: cranial nerve grossly intact, no new deficit Musculoskeletal: normal tone, generalized weakness Psychiatric: normal affect, A&O x 3 Hosp A/P (1) FTT (failure to thrive) in adult Status: Chronic Plan: Continue supportive mgmt, PT for mobilization (2) Generalized weakness Code(s): R53.1 - WEAKNESS Status: Chronic (3) Chronic venous stasis dermatitis of both lower extremities Code(s): I87.2 - VENOUS INSUFFICIENCY (CHRONIC) (PERIPHERAL) Status: Chronic - Plan PT/OT, executive secretary social welfare, out of bed/ambulate Stable currently Continue supportive mgmt OOB with PT CM for dispo options, SNF options pending Code Status: FULL No family available for planning or discussions
[2019-08-02] MEDS: Famotidine 20 MG TAB PO SCH ×3 (09:28→20:13)
[2019-08-02] MEDS: Aspirin Chewable 81 MG TAB PO SCH (09:28)
[2019-08-02] MEDS: Enoxaparin Sodium 40 MG/0.4 ML SYRINGE SC SCH ×2 (09:29→13:07)
--- NOTE | 2019-08-02 18:45 | PDOC.HOSPP ---
- Subjective Encounter Date: 08/02/19 Subjective: No new complaints - Objective Vital Signs & Weight: Vital Signs (12 hours) Temp Pulse Resp BP BP Pulse Ox 08/02/19 08:00 97.5 F L 76 20 131/67 95 08/02/19 07:38 97.5 F L 76 131/67 95 Weight Admit Weight 225 lb Weight 225 lb 8 oz I&O: 08/01/19 08/02/19 08/03/19 06:59 06:59 06:59 Intake Total 720 1430 Balance 720 1430 Result Diagrams: 07/31/19 11:43 07/31/19 11:43 Hospitalist ROS - Medication Medications: Active Medications Generic Name Dose Route Start Last Admin Trade Name Freq PRN Reason Stop Dose Admin Aspirin 81 mg 07/31/19 09:00 08/02/19 09:28 Aspirin Chewable PO 81 mg DAILY LEANNE Administration Enoxaparin Sodium 40 mg 07/31/19 09:00 08/02/19 13:07 Lovenox SC Not Given 0900 LEANNE Famotidine 20 mg 07/30/19 21:00 08/02/19 13:07 Pepcid PO Not Given BID LEANNE - Exam General Appearance: awake alert ENT: normocephalic atraumatic Neck: supple, no JVD Heart: RRR Respiratory: CTAB, normal chest expansion, no tachypnea Gastrointestinal: soft, non-tender, non-distended, normal bowel sounds Neurological: cranial nerve grossly intact, no focal deficits Hosp A/P - Plan Hosp A/P (1) FTT (failure to thrive) in adult Status: Chronic Plan: Continue supportive mgmt, PT for mobilization (2) Generalized weakness Code(s): R53.1 - WEAKNESS Status: Chronic (3) Chronic venous stasis dermatitis of both lower extremities Code(s): I87.2 - VENOUS INSUFFICIENCY (CHRONIC) (PERIPHERAL) Status: Chronic - Plan No new complaints. The patient appears to be stable. He is working with PT. Tolerating his diet. Pending placement.
[2019-08-03] MEDS: Famotidine 20 MG TAB PO SCH ×2 (08:33→21:35)
[2019-08-03] MEDS: Aspirin Chewable 81 MG TAB PO SCH (08:33)
[2019-08-03] MEDS: Enoxaparin Sodium 40 MG/0.4 ML SYRINGE SC SCH (08:35)
--- NOTE | 2019-08-03 09:10 | PDOC.HOSPP ---
- Subjective Encounter Date: 08/03/19 Subjective: Patient does not have any new complaints today. - Objective Vital Signs & Weight: Vital Signs (12 hours) Temp Pulse Resp BP BP Pulse Ox 08/03/19 07:42 97.3 F L 65 20 116/73 96 08/02/19 21:10 97.9 F 62 17 114/79 95 Weight Admit Weight 225 lb Weight 225 lb 8 oz I&O: 08/02/19 08/03/19 08/04/19 06:59 06:59 06:59 Intake Total 1430 Balance 1430 Result Diagrams: 07/31/19 11:43 07/31/19 11:43 Hospitalist ROS - Medication Medications: Active Medications Generic Name Dose Route Start Last Admin Trade Name Freq PRN Reason Stop Dose Admin Acetaminophen 1,000 mg 07/30/19 17:42 08/02/19 20:14 Tylenol PO 1,000 mg Q6H PRN Administration Mild Pain (1-3) Aspirin 81 mg 07/31/19 09:00 08/03/19 08:33 Aspirin Chewable PO 81 mg DAILY LEANNE Administration Enoxaparin Sodium 40 mg 07/31/19 09:00 08/03/19 08:35 Lovenox SC 40 mg 0900 LEANNE Administration Famotidine 20 mg 07/30/19 21:00 08/03/19 08:33 Pepcid PO 20 mg BID LEANNE Administration - Exam General Appearance: awake alert ENT: normocephalic atraumatic Neck: supple Heart: RRR Respiratory: normal chest expansion, no tachypnea Gastrointestinal: soft Neurological: cranial nerve grossly intact, no new deficit Hosp A/P - Plan Hosp A/P (1) FTT (failure to thrive) in adult Status: Chronic Plan: Continue supportive mgmt, PT for mobilization (2) Generalized weakness Code(s): R53.1 - WEAKNESS Status: Chronic (3) Chronic venous stasis dermatitis of both lower extremities Code(s): I87.2 - VENOUS INSUFFICIENCY (CHRONIC) (PERIPHERAL) Status: Chronic - Plan No new events. He is tolerating his diet and ambulating well with therapy. Pending placement.
[2019-08-04] MEDS: Aspirin Chewable 81 MG TAB PO SCH (09:06)
[2019-08-04] MEDS: Famotidine 20 MG TAB PO SCH ×2 (09:06→21:56)
[2019-08-04] MEDS: Enoxaparin Sodium 40 MG/0.4 ML SYRINGE SC SCH (09:06)
--- NOTE | 2019-08-04 19:35 | PDOC.HOSPP ---
- Subjective Encounter Date: 08/04/19 Subjective: Remains confused - Objective Vital Signs & Weight: Vital Signs (12 hours) Temp Pulse Resp BP Pulse Ox 08/04/19 08:00 97.3 F L 61 20 141/81 H 96 Weight Admit Weight 225 lb Weight 225 lb 8 oz I&O: 08/03/19 08/04/19 08/05/19 06:59 06:59 06:59 Intake Total 1100 Balance 1100 Result Diagrams: 07/31/19 11:43 07/31/19 11:43 Hospitalist ROS - Medication Medications: Active Medications Generic Name Dose Route Start Last Admin Trade Name Freq PRN Reason Stop Dose Admin Acetaminophen 1,000 mg 07/30/19 17:42 08/02/19 20:14 Tylenol PO 1,000 mg Q6H PRN Administration Mild Pain (1-3) Aspirin 81 mg 07/31/19 09:00 08/04/19 09:06 Aspirin Chewable PO 81 mg DAILY LEANNE Administration Enoxaparin Sodium 40 mg 07/31/19 09:00 08/04/19 09:06 Lovenox SC 40 mg 0900 LEANNE Administration Famotidine 20 mg 07/30/19 21:00 08/04/19 09:06 Pepcid PO 20 mg BID LEANNE Administration - Exam General Appearance: awake alert ENT: normocephalic atraumatic Neck: supple Heart: RRR, no murmur, no gallops, no rubs, normal peripheral pulses Respiratory: CTAB, no wheezes, no rales, no ronchi Gastrointestinal: soft, non-tender, non-distended, normal bowel sounds Neurological: cranial nerve grossly intact Hosp A/P - Plan Hosp A/P (1) FTT (failure to thrive) in adult Status: Chronic Plan: Continue supportive mgmt, PT for mobilization (2) Generalized weakness Code(s): R53.1 - WEAKNESS Status: Chronic (3) Chronic venous stasis dermatitis of both lower extremities Code(s): I87.2 - VENOUS INSUFFICIENCY (CHRONIC) (PERIPHERAL) Status: Chronic - Plan No new events. He is tolerating his diet and ambulating well with therapy. Pending placement. Case management and APS trying to reach the family for consent to transfer the patient to the placement facility.
[2019-08-05] MEDS: Aspirin Chewable 81 MG TAB PO SCH (08:14)
[2019-08-05] MEDS: Enoxaparin Sodium 40 MG/0.4 ML SYRINGE SC SCH (08:15)
--- NOTE | 2019-08-05 09:29 | PDOC.HOSPP ---
- Subjective Encounter Date: 08/05/19 Subjective: No new events overnight. - Objective Vital Signs & Weight: Vital Signs (12 hours) Temp Pulse Resp BP Pulse Ox 08/05/19 07:24 97.5 F L 74 20 131/84 96 Weight Admit Weight 225 lb Weight 225 lb 8 oz I&O: 08/04/19 08/05/19 08/06/19 06:59 06:59 06:59 Intake Total 1100 Balance 1100 Result Diagrams: 07/31/19 11:43 07/31/19 11:43 Hospitalist ROS - Medication Medications: Active Medications Generic Name Dose Route Start Last Admin Trade Name Freq PRN Reason Stop Dose Admin Acetaminophen 1,000 mg 07/30/19 17:42 08/02/19 20:14 Tylenol PO 1,000 mg Q6H PRN Administration Mild Pain (1-3) Aspirin 81 mg 07/31/19 09:00 08/05/19 08:14 Aspirin Chewable PO 81 mg DAILY LEANNE Administration Enoxaparin Sodium 40 mg 07/31/19 09:00 08/05/19 08:15 Lovenox SC 40 mg 0900 LEANNE Administration Famotidine 20 mg 07/30/19 21:00 08/04/19 21:56 Pepcid PO Not Given BID LEANNE - Exam General Appearance: NAD ENT: normocephalic atraumatic Neck: supple, no JVD Heart: RRR Respiratory: CTAB Gastrointestinal: soft Neurological: cranial nerve grossly intact Hosp A/P - Plan Hosp A/P (1) FTT (failure to thrive) in adult Status: Chronic Plan: Continue supportive mgmt, PT for mobilization (2) Generalized weakness Code(s): R53.1 - WEAKNESS Status: Chronic (3) Chronic venous stasis dermatitis of both lower extremities Code(s): I87.2 - VENOUS INSUFFICIENCY (CHRONIC) (PERIPHERAL) Status: Chronic - Plan No new events. He is tolerating his diet and ambulating well with therapy. Pending placement. Case management and APS trying to reach the family for consent to transfer the patient to the placement facility.
[2019-08-05] MEDS: Famotidine 20 MG TAB PO SCH ×2 (10:26→21:02)
[2019-08-06] MEDS: Famotidine 20 MG TAB PO SCH ×2 (10:03→20:54)
[2019-08-06] MEDS: Enoxaparin Sodium 40 MG/0.4 ML SYRINGE SC SCH (10:03)
[2019-08-06] MEDS: Aspirin Chewable 81 MG TAB PO SCH (10:03)
--- NOTE | 2019-08-06 21:14 | PDOC.HOSPP ---
- Subjective Encounter Date: 08/06/19 - Objective Vital Signs & Weight: Weight Admit Weight 225 lb Weight 225 lb 8 oz Result Diagrams: 07/31/19 11:43 07/31/19 11:43 Hospitalist ROS - Medication Medications: Active Medications Generic Name Dose Route Start Last Admin Trade Name Freq PRN Reason Stop Dose Admin Acetaminophen 1,000 mg 07/30/19 17:42 08/02/19 20:14 Tylenol PO 1,000 mg Q6H PRN Administration Mild Pain (1-3) Aspirin 81 mg 07/31/19 09:00 08/06/19 10:03 Aspirin Chewable PO 81 mg DAILY LEANNE Administration Enoxaparin Sodium 40 mg 07/31/19 09:00 08/06/19 10:03 Lovenox SC 40 mg 0900 LEANNE Administration Famotidine 20 mg 07/30/19 21:00 08/06/19 20:54 Pepcid PO Not Given BID LEANNE Sodium Chloride 10 ml 08/06/19 21:00 08/06/19 20:55 Flush - Normal Saline IVF Not Given Q12HR LEANNE - Exam General Appearance: awake alert ENT: normocephalic atraumatic Neck: supple Respiratory: normal chest expansion, no tachypnea Gastrointestinal: soft Hosp A/P - Plan Hosp A/P (1) FTT (failure to thrive) in adult Status: Chronic Plan: Continue supportive mgmt, PT for mobilization (2) Generalized weakness Code(s): R53.1 - WEAKNESS Status: Chronic (3) Chronic venous stasis dermatitis of both lower extremities Code(s): I87.2 - VENOUS INSUFFICIENCY (CHRONIC) (PERIPHERAL) Status: Chronic - Plan No new events. He is tolerating his diet and ambulating well with therapy. Pending placement.
[2019-08-07] MEDS: Aspirin Chewable 81 MG TAB PO SCH (08:13)
[2019-08-07] MEDS: Enoxaparin Sodium 40 MG/0.4 ML SYRINGE SC SCH (08:13)
[2019-08-07] MEDS: Famotidine 20 MG TAB PO SCH (08:33)
--- NOTE | 2019-08-07 12:58 | PDOC.HOSPP ---
- Subjective Encounter Date: 08/07/19 Subjective: No new events overnight. - Objective Vital Signs & Weight: Vital Signs (12 hours) Temp Pulse Resp Pulse Ox 08/07/19 08:00 97.7 F 67 20 97 Weight Admit Weight 225 lb Weight 225 lb 8 oz Result Diagrams: 07/31/19 11:43 07/31/19 11:43 Hospitalist ROS - Medication Medications: Active Medications Generic Name Dose Route Start Last Admin Trade Name Freq PRN Reason Stop Dose Admin Acetaminophen 1,000 mg 07/30/19 17:42 08/02/19 20:14 Tylenol PO 1,000 mg Q6H PRN Administration Mild Pain (1-3) Aspirin 81 mg 07/31/19 09:00 08/07/19 08:13 Aspirin Chewable PO 81 mg DAILY LEANNE Administration Enoxaparin Sodium 40 mg 07/31/19 09:00 08/07/19 08:13 Lovenox SC 40 mg 0900 LEANNE Administration Pantoprazole Sodium 40 mg 08/07/19 09:00 08/07/19 10:37 Protonix PO Not Given DAILY LEANNE Sodium Chloride 10 ml 08/06/19 21:00 08/07/19 08:34 Flush - Normal Saline IVF Not Given Q12HR LEANNE - Exam General Appearance: awake alert ENT: normocephalic atraumatic Neck: supple Heart: RRR, no murmur, no gallops, no rubs, normal peripheral pulses Respiratory: normal chest expansion, no tachypnea Gastrointestinal: soft Neurological: cranial nerve grossly intact, no focal deficits Hosp A/P - Plan Hosp A/P (1) FTT (failure to thrive) in adult Status: Chronic Plan: Continue supportive mgmt, PT for mobilization (2) Generalized weakness Code(s): R53.1 - WEAKNESS Status: Chronic (3) Chronic venous stasis dermatitis of both lower extremities Code(s): I87.2 - VENOUS INSUFFICIENCY (CHRONIC) (PERIPHERAL) Status: Chronic - Plan No new events. He is tolerating his diet and ambulating well with therapy. Pending placement.
[2019-08-08 08:06] VITALS: TEMP 97.5
[2019-08-08] MEDS: Aspirin Chewable 81 MG TAB PO SCH (08:23)
[2019-08-08] MEDS: Enoxaparin Sodium 40 MG/0.4 ML SYRINGE SC SCH (08:24)
[2019-08-08 16:20] VITALS: BP 124/70
--- NOTE | 2019-08-09 00:38 | DIS ---
DATE OF ADMISSION: 07/30/2019 DATE OF DISCHARGE: 08/08/2019 DISCHARGE DIAGNOSES: 1. Failure to thrive. 2. Generalized weakness. 3. Chronic venous dermatitis of both lower extremities. 4. Dementia. DISCHARGE MEDICATIONS: 1. Aspirin 81 mg orally daily. 2. Pantoprazole 40 mg orally daily. HISTORY OF PRESENT ILLNESS AND HOSPITAL COURSE: The patient is a 73-year-old male with past medical history of chronic lymphedema of the lower extremities, hyperlipidemia, history of DVTs, history of PE with IVC filter placement in 2017, and BPH, who was sent to the emergency department for confusion from his home health agency. The patient was found to be in bed, covered in feces and urine, and unable to give any indication of why this was occurring. He stated that he has been living at home by himself. He denied any recent fall, trauma, abdominal pain, fever, or sick contacts. The patient was placed in observation. His laboratory testing did not reveal any acute abnormalities. He was kept in the hospital in a stable condition, where he was able to tolerate his diet and work with Physical Therapy. At this time, the patient will be transferred to a nursing facility for further care. Job ID: [id number]
--- NOTE | 2019-08-09 10:56 | EKG ---
Test Reason : Blood Pressure : / mmHG Vent. Rate : 084 BPM Atrial Rate : 084 BPM P-R Int : 222 ms QRS Dur : 130 ms QT Int : 426 ms P-R-T Axes : 067 105 001 degrees QTc Int : 503 ms Sinus rhythm with 1st degree A-V block with frequent Premature ventricular complexes and Fusion compl exes Rightward axis Non-specific intra-ventricular conduction block T wave abnormality, consider inferior ischemia Abnormal ECG Confirmed by HARSH BOBO DO ([id number]), photography editor ROB LIMON ([id number]) on 08/09/2019 10:56:04 AM Referred By: JERAMIE Confirmed By:HARSH BOBO DO
== END 2019-08-08 16:58 ==
LOC: ERS 11:58 → T4-B 15:26
PROVIDERS: ADMIT Family Medicine; ATTEND Internal Medicine
DX: R62.7 Adult failure to thrive (principal); R53.1 Weakness; I87.2 Venous insufficiency (chronic) (peripheral); F03.90 Unspecified dementia, unspecified severity, without behavioral disturbance, psychotic disturbance, mood disturbance, and anxiety; E78.5 Hyperlipidemia, unspecified; N40.0 Benign prostatic hyperplasia without lower urinary tract symptoms; F17.220 Nicotine dependence, chewing tobacco, uncomplicated; Z68.36 Body mass index [BMI] 36.0-36.9, adult; Z86.711 Personal history of pulmonary embolism; Z86.718 Personal history of other venous thrombosis and embolism; Z79.82 Long term (current) use of aspirin; Z79.899 Other long term (current) drug therapy
CPT/HCPCS: 36415; 71045; 80048; 80053; 81003; 82550; 83880; 84484; 85007; 85025; 85027; 93005; 96372; G0378; J1650

== ENCOUNTER 2020-08-15 22:03 | Emergency (ER) | payer MEDICARE ==
[2020-08-15 23:24] LABS: #Eosinphils 0.1 thou/uL (0.0-0.7); #Lymphocytes 1.4 thou/uL (1.20-3.40); #Monocytes 0.8 thou/uL (0.11-0.59); #Neutrophils 5.4 thou/uL (1.40-6.50); %Basophils 0.5 % (0.0-1.0); %Eosinophils 1.2 % (0.0-10.0); %Lymphocytes 17.7 % (21.0-51.0); %Monocytes 10.5 % (0.0-10.0); %Neutrophils 70.1 % (42.0-75.0); Hemoglobin 18.7 g/dL (14.0-18.0); Mean Corpuscular HGB CONC 33.2 g/dL (32.0-36.0); Mean Corpuscular Hemoglobin 29.3 pg (27.0-31.0); Mean Corpuscular Volume 88.3 fL (78.0-98.0); Mean Platelet Volume 7.7 fL (7.4-10.4); Platelet Count 223 thou/uL (130-400); RBC Distribution Width 13.2 % (11.5-14.5); Red Blood Cell (RBC) Count 6.38 mill/uL (4.70-6.10); White Blood Cell (WBC) Count 7.8 thou/uL (4.8-10.8)
[2020-08-16 01:38] LABS: Albumin 4.3 g/dL (3.4-4.8)
[2020-08-16 01:39] LABS: Calcium 9.1 mg/dL (7.8-10.44); Chloride 103 mmol/L (98-107); Potassium 4.5 mmol/L (3.5-5.1); Sodium 136 mmol/L (136-145)
[2020-08-16 01:40] LABS: Glucose 80 mg/dL (83-110); Protein, Total 8.3 g/dL (5.8-8.1)
[2020-08-16 01:42] LABS: Anion Gap 21 mmol/L (10-20); Carbon Dioxide 17 mmol/L (23-31)
[2020-08-16 01:43] LABS: Alkaline Phosphatase 67 U/L (40-110); Calc. Creatinine Clearance 0 mL/min (70-130)
[2020-08-16 01:44] LABS: BUN (Urea Nitrogen) 12 mg/dL (8.4-25.7)
[2020-08-16 01:45] LABS: AST (SGOT) 33 U/L (5-34)
[2020-08-16 01:46] LABS: ALT (SGPT) 24 U/L (8-55)
== END 2020-08-16 13:24 ==
LOC: ERS 22:03
DX: R62.7 Adult failure to thrive (principal); E78.5 Hyperlipidemia, unspecified; I10 Essential (primary) hypertension; F17.220 Nicotine dependence, chewing tobacco, uncomplicated
CPT/HCPCS: 36415; 71045; 80053; 82550; 83880; 84484; 85025; 93005

== ENCOUNTER 2020-10-23 04:19 | Emergency (ER) | payer MEDICARE, OTHER | END 2020-10-24 21:24 | disposition short-term general hospital (02) | LOC: ERS 04:19 | DX: U07.1 COVID-19 (principal); E78.5 Hyperlipidemia, unspecified; E78.00 Pure hypercholesterolemia, unspecified; I10 Essential (primary) hypertension; Z86.718 Personal history of other venous thrombosis and embolism; F17.220 Nicotine dependence, chewing tobacco, uncomplicated; W19.XXXA Unspecified fall, initial encounter | CPT/HCPCS: 99284 ==

== ENCOUNTER 2021-06-26 02:14 | Inpatient (IN) | payer MEDICARE, MEDICAID ==
[2021-06-26 03:23] VITALS: BMI 34.4
[2021-06-26] MEDS ORDERED: Ondansetron ODT 4 MG TAB PO PRN (03:25)
[2021-06-26] MEDS ORDERED: Acetaminophen 325 MG TAB PO PRN (03:25)
[2021-06-26] MEDS ORDERED: Ondansetron PF 4 MG/2 ML Vial IVP PRN (03:25)
[2021-06-26] MEDS ORDERED: Acetaminophen 650 MG Suppository PR PRN (03:25)
[2021-06-26] MEDS ORDERED: Sodium Chloride 0.9% 1,000 ML IV SCH (05:15)
[2021-06-26] MEDS: cefTRIAXone\\ROCEPHIN 1 GM in Sodium Chloride 0.9% 100 ML IVPB SCH (06:39)
[2021-06-26] MEDS ORDERED: Electrolyte Replacement Protocol 1 EACH FS SCH (07:30)
[2021-06-26] MEDS ORDERED: Vancomycin HCl 500 MG in Sodium Chloride 0.9% 100 ML IVPB SCH (08:00)
[2021-06-26] MEDS: Enoxaparin Sodium 40 MG/0.4 ML SYRINGE SC SCH (09:34)
[2021-06-26 10:02] LABS: #Eosinphils 0.3 thou/uL (0.0-0.7); #Lymphocytes 1.5 thou/uL (1.20-3.40); #Neutrophils 5.4 thou/uL (1.40-6.50); %Basophils 0.3 % (0.0-1.0); %Eosinophils 3.3 % (0.0-10.0); %Lymphocytes 18.4 % (21.0-51.0); %Neutrophils 66.1 % (42.0-75.0); Hemoglobin 15.8 g/dL (14.0-18.0); Mean Corpuscular Hemoglobin 29.7 pg (27.0-31.0); Mean Corpuscular Volume 92.8 fL (78.0-98.0); Mean Platelet Volume 7.7 fL (7.4-10.4); Platelet Count 249 thou/uL (130-400); RBC Distribution Width 13.3 % (11.5-14.5); Red Blood Cell (RBC) Count 5.31 mill/uL (4.70-6.10); White Blood Cell (WBC) Count 8.2 thou/uL (4.8-10.8)
[2021-06-26 10:18] LABS: ALT (SGPT) 11 U/L (8-55); AST (SGOT) 13 U/L (5-34); Albumin 3.5 g/dL (3.4-4.8); Alkaline Phosphatase 74 U/L (40-110); Anion Gap 12 mmol/L (10-20); BUN (Urea Nitrogen) 7 mg/dL (8.4-25.7); Bilirubin, Total 0.7 mg/dL (0.2-1.2); Calc. Creatinine Clearance 79 mL/min (70-130); Calcium 8.7 mg/dL (7.8-10.44); Carbon Dioxide 26 mmol/L (23-31); Chloride 109 mmol/L (98-107); Globulin 3.2 g/dL (2.4-3.5); Glucose 94 mg/dL (83-110); Magnesium 1.9 mg/dL (1.6-2.6); Phosphorus 3.3 mg/dL (2.3-4.7); Potassium 4.3 mmol/L (3.5-5.1); Protein, Total 6.7 g/dL (5.8-8.1); Sodium 143 mmol/L (136-145)
[2021-06-26 10:47] LABS: Bacteria/HPF Rare-Few HPF (None Seen); Bilirubin Negative (Negative); Blood, Urine Negative (Negative); Clarity Clear (Clear); Glucose, Urine (Dipstick) Normal (Negative); Ketone, Urine Negative (Negative); Leukocyte 75 Leu/uL (Negative); Nitrite Negative (Negative); Protein, Urine (Dipstick) Negative (Neg-Trace); RBC/HPF 0-3 HPF (0-3); Specific Gravity, Urine 1.014 (1.002-1.036); Squamous Epithelial 0-3 HPF (0-3); Urobilinogen Normal mg/dL (Less than 2)
[2021-06-26 10:48] LABS: Urine Culture Reflex Yes Yes
[2021-06-26] MEDS ORDERED: Magnesium 2 GM/50 ML(in water) 2 GM in Premix Bag 1 BAG IVPB SCH (12:15)
[2021-06-26] MEDS: Lactated Ringer's 1,000 ML IV SCH (13:25)
[2021-06-26 16:07] LABS: SARS-CoV-2 PCR by NAA Not Detected (NotDetected)
[2021-06-27 05:17] LABS: Anion Gap 12 mmol/L (10-20); BUN (Urea Nitrogen) 9 mg/dL (8.4-25.7); Calc. Creatinine Clearance 78 mL/min (70-130); Calcium 8.7 mg/dL (7.8-10.44); Carbon Dioxide 25 mmol/L (23-31); Chloride 108 mmol/L (98-107); Glucose 93 mg/dL (83-110); Potassium 4.6 mmol/L (3.5-5.1); Sodium 140 mmol/L (136-145)
[2021-06-27] MEDS ORDERED: Vancomycin HCl 1.5 GM in Sodium Chloride 0.9% 250 ML 300 ML IVPB SCH (08:00)
[2021-06-27] MEDS: Enoxaparin Sodium 40 MG/0.4 ML SYRINGE SC SCH (08:12)
[2021-06-27] MEDS: Lactated Ringer's 1,000 ML IV SCH (08:12)
[2021-06-27] MEDS: cefTRIAXone\\ROCEPHIN 1 GM in Sodium Chloride 0.9% 100 ML IVPB SCH (12:52)
[2021-06-28 07:36] LABS: Vancomycin, Trough 9.4 ug/mL
[2021-06-28] MEDS: Enoxaparin Sodium 40 MG/0.4 ML SYRINGE SC SCH (08:15)
[2021-06-28] MEDS: Vancomycin 1 GM in Premix Bag 1 BAG IVPB SCH ×2 (08:15→20:03)
[2021-06-28] MEDS: cefTRIAXone\\ROCEPHIN 1 GM in Sodium Chloride 0.9% 100 ML IVPB SCH (09:28)
[2021-06-28 20:07] VITALS: BP 130/63; TEMP 98.3
== END 2021-06-28 20:40 | DRG 872 ==
LOC: INTOOBSV 02:46 → NEURO 02:46 → OBSVTOIN 07:32
PROVIDERS: ADMIT Family Medicine; ATTEND Family Medicine
DX: A41.9 Sepsis, unspecified organism (principal); N17.9 Acute kidney failure, unspecified; N39.0 Urinary tract infection, site not specified; Z20.822 Contact with and (suspected) exposure to COVID-19; E78.5 Hyperlipidemia, unspecified; I10 Essential (primary) hypertension; I87.8 Other specified disorders of veins; N40.0 Benign prostatic hyperplasia without lower urinary tract symptoms; L89.151 Pressure ulcer of sacral region, stage 1; F17.220 Nicotine dependence, chewing tobacco, uncomplicated; I89.0 Lymphedema, not elsewhere classified; I45.10 Unspecified right bundle-branch block; Z86.711 Personal history of pulmonary embolism; Z86.718 Personal history of other venous thrombosis and embolism; Z79.899 Other long term (current) drug therapy; Z79.82 Long term (current) use of aspirin; Z79.01 Long term (current) use of anticoagulants; Z85.828 Personal history of other malignant neoplasm of skin; Z95.828 Presence of other vascular implants and grafts
CPT/HCPCS: 36415; 80048; 80202; 81001; 83735; 84100; 84145; 85025; 87040; 87086; 96372; 96374; G0378; J0696; J1650; J3370; J3475; J3490; J7050; J7120; U0003; U0005